=== PATIENT | female | born 1985 | race Caucasian/White ===

== ENCOUNTER 2017-03-22 19:39 | Emergency (ER) | payer BC ==
[~2017-03-22] VITALS: Ht 167.6 cm; Wt 72.6 kg
[~2017-03-22 19:39] MED LIST: NORCO 5-325 TA1 EACH PO; OXYCONTIN20 M1 PO; PHENERGAN 25 MG25 M1 PO; PRILOSEC 20 MG20 MG PO; ZOFRAN ODT4 MG DISSOLVE
[2017-03-22 20:20] LABS: URINE BILIRUBIN NEGATIVE (Negative); URINE BLOOD NEGATIVE (Negative); URINE COLOR YELLOW; URINE GLUCOSE-RANDOM* NEGATIVE (Negative); URINE KETONES NEGATIVE (Negative); URINE NITRITE NEGATIVE (Negative); URINE PROTEIN (DIPSTICK) 3+ (Negative); URINE UROBILINOGEN 0.2 E.U./dl (0.2-1.0)
[2017-03-22 20:31] LABS: SQUAMOUS 0-3 Few /LPF (0-3); URINE WBC 0-5 Rare /HPF (0-5)
[2017-03-22 20:32] LABS: BACTERIA 1-9 Few /HPF (None Seen); CASTS None Seen /LPF (None Seen); CRYSTALS None Seen /LPF (None Seen); URINE RBC None Seen /HPF (0-2)
[2017-03-22 20:51] LABS: ABSOLUTE NEUTROPHILS 7.6 thou/uL (1.4-8.2); BASOPHILS 0.8 % (0.0-2.0); EOSINOPHILS 1.4 % (0.0-3.0); HEMATOCRIT 33.3 % (37.0-47.0); HEMOGLOBIN 10.9 gm/dL (12.0-15.0); LYMPHOCYTES 22.7 % (24.0-44.0); MCH 27.3 pg (26.0-34.0); MCHC 32.7 g/dL (28.0-37.0); MCV 83.5 fL (80.0-100.0); MONOCYTES 4.6 % (1.0-8.0); PLATELET COUNT 324 thou/uL (150-400); POLYS 70.5 % (36.0-66.0); RBC 3.99 mil/uL (4.20-5.00); RDW 13.7 % (10.5-14.5); WBC 10.8 thou/uL (4.0-11.0)
[2017-03-22 20:52] LABS: MANUAL DIFF NO
[2017-03-22 20:59] LABS: ANION GAP 9 mmol/L (7-16); BUN 12 mg/dL (7-18); CALCIUM 9.9 mg/dL (8.5-10.1); CHLORIDE 104 mmol/L (98-107); CO2 27 mmol/L (21-32); CREATININE 0.9 mg/dL (0.6-1.0); GLUCOSE 99 mg/dL (74-106); SODIUM 140 mmol/L (136-145)
[2017-03-22 21:03] LABS: ALBUMIN 3.9 g/dL (3.4-5.0); ALKALINE PHOSPHATASE 95 U/L (46-116); DIRECT BILIRUBIN < 0.1 mg/dL (<0.1-0.3); SGOT 25 U/L (15-37); SGPT 23 U/L (30-65); TOTAL BILIRUBIN 0.2 mg/dL (<0.1-1.0); TOTAL PROTEIN 8.4 g/dL (6.4-8.2)
[2017-03-22 21:26] VITALS: BP 121/73
[2017-03-22] MEDS ORDERED: CARAFATE 1 GM TA1 G1 PO (22:10)
== END 2017-03-22 22:21 | disposition left against medical advice (07) ==
LOC: ER 19:39
PROVIDERS: Nurse Practitioner
DX: R11.2 Nausea with vomiting, unspecified (principal); R10.84 Generalized abdominal pain; Z88.5 Allergy status to narcotic agent; Z88.6 Allergy status to analgesic agent